=== PATIENT | female | born 1960 | race Caucasian/White ===

== ENCOUNTER 2018-04-19 10:18 | Outpatient (CLI) | payer BC | END 2018-04-19 10:19 | disposition home or self-care (01) | LOC: BICMAMMO 10:18 | PROVIDERS: ATTEND Family Medicine | DX: Z12.31 Encounter for screening mammogram for malignant neoplasm of breast (principal) | CPT/HCPCS: 77063; 77067 ==

== ENCOUNTER 2020-01-12 13:02 | Outpatient (CLI) | payer BC ==
--- NOTE | 2020-01-12 14:25 | MMO ---
Bilateral MAMMO Bilat Screen [facility]. CLINICAL HISTORY: Patient is 60 years old and is seen for screening. The patient has no family history of breast cancer. The patient has no personal history of cancer. The patient has a history of bilateral Explantation in May,, bilateral Implants in May, and bilateral Implants in 1999 - benign. VIEWS: The views performed were: bilateral craniocaudal; bilateral craniocaudal with tomosynthesis; bilateral mediolateral oblique; bilateral mediolateral oblique with tomosynthesis; and bilateral Implant displaced with tomosynthesis. FILMS COMPARED: The present examination has been compared to prior imaging studies performed at [facility] on 10/23/2016 and 04/19/2018, and at [facility] on 09/05/2008. This study has been interpreted with the assistance of computer-aided detection. MAMMOGRAM FINDINGS: The breasts are heterogeneously dense, which could obscure a lesion on mammography. Finding 1: There are stable benign appearing calcifications seen in both breasts. Finding 2: Normal implants are present. There are no suspicious masses, suspicious calcifications, or new areas of architectural distortion. IMPRESSION: THERE IS NO MAMMOGRAPHIC EVIDENCE OF MALIGNANCY. A ROUTINE FOLLOW-UP MAMMOGRAM IN 1 YEAR IS RECOMMENDED. THE RESULTS OF THIS EXAM WERE SENT TO THE PATIENT. ACR BI-RADS Category 2 - Benign finding MAMMOGRAPHY NOTE: 1. A negative mammogram report should not delay a biopsy if a dominant of clinically suspicious mass is present. 2. Approximately 10% to 15% of breast cancers are not detected by mammography. 3. Adenosis and dense breasts may obscure an underlying neoplasm. Reported by: YARI CASTRO MD Electonically Signed: [id number]
== END 2020-01-12 13:03 | disposition home or self-care (01) ==
LOC: BICMAMMO 13:02
PROVIDERS: ATTEND Family Medicine
DX: Z12.31 Encounter for screening mammogram for malignant neoplasm of breast (principal); Z98.82 Breast implant status
CPT/HCPCS: 77063; 77067

== ENCOUNTER 2020-02-07 12:50 | Outpatient (CLI) | payer BC ==
--- NOTE | 2020-02-07 14:38 | MRI ---
MRI LUMBAR SPINE WITHOUT CONTRAST: 02/07/20 INDICATIONS: Radiculopathy and low back pain. FINDINGS: Lumbar vertebrae maintain height and alignment. There are degenerative changes noted with spurring fr om the lumbar vertebra and degenerative disc changes throughout. Loss of disc space at L3-4, L4-5, an d to a lesser degree of L5-S1. Significant degenerative end plate changes at L3-4 and L4-5 with Modic type I changes. T12-L1: Mild disc bulge flattens the thecal sac without evidence of central canal or foraminal stenos is. L1-2: Minimal disc bulge. No central canal or foraminal stenosis. L2-3: There is an annular fissure with small central disc protrusion flattening the anterior thecal s ac. Moderate facet and ligamentous hypertrophy with posterior epidural fat. These changes result in m ild central canal stenosis. No significant foraminal stenosis. L3-4: Broad based disc bulge. Facet hypertrophy with posterior epidural fat compresses the thecal sac resulting moderate central canal stenosis. There is rather prominent epidural lipomatosis present at this level. L4-5: Broad based disc bulge with facet hypertrophy. Epidural lipomatosis compressing the thecal sac resulting in moderate central canal stenosis. Right foraminal stenosis at this level due to disc and facet hypertrophy. L5-S1: Central disc protrusion abuts the anterior thecal sac. The small protrusion measures approxima tely 6 to 7 mm AP dimension. It appears to contact the traversing left S1 nerve root. There is mild e pidural lipomatosis at this level with mild central canal stenosis. Mild right foraminal stenosis. IMPRESSION: Disc bulge/protrusions at L2-3, L3-4, L4-5 and L5-S1 as described above. Epidural lipomatosis is prom inent at L3-4, L4-5, and L5-S1 as noted above. POS: AH
== END 2020-02-07 12:51 | disposition home or self-care (01) ==
LOC: SCSMRI 12:50
PROVIDERS: ATTEND Family Medicine
DX: M47.27 Other spondylosis with radiculopathy, lumbosacral region (principal); M51.17 Intervertebral disc disorders with radiculopathy, lumbosacral region; M51.26 Other intervertebral disc displacement, lumbar region; E88.2 Lipomatosis, not elsewhere classified
CPT/HCPCS: 72148

== ENCOUNTER 2020-04-30 06:38 | Outpatient (CLI) | payer BC ==
[2020-04-30 13:33] LABS: Hemoglobin 14.8 g/dL (12.0-16.0); Mean Corpuscular Hemoglobin 32.4 PG (27.0-33.0); Mean Corpuscular Volume 95.2 fl (80.0-100.0); Platelet Count 237 10x3/uL (130-400); RBC Distribution Width 11.4 % (11.5-14.5); Red Blood Cell (RBC) Count 4.57 10x6/uL (3.90-5.20); White Blood Cell (WBC) Count 6.6 10x3/uL (4.5-11.0)
[2020-04-30 14:00] LABS: Anion Gap 17 mmol/L (10-20); BUN (Urea Nitrogen) 18 mg/dL (9.8-20.1); Calc. Creatinine Clearance 0 mL/min (70-130); Calcium 9.8 mg/dL (7.8-10.44); Carbon Dioxide 29 mmol/L (22-29); Chloride 100 mmol/L (98-107); Glucose 125 mg/dL (70-105); Potassium 4.2 mmol/L (3.5-5.1); Sodium 142 mmol/L (136-145)
[2020-04-30 14:05] LABS: PTT 27.1 sec (22.0-33.0); Prothrombin Time 10.6 sec (9.5-12.1)
[2020-04-30 21:56] LABS: SARS-CoV-2 MS2 Positive; SARS-CoV-2 N Gene Negative; SARS-CoV-2 S Gene Negative; SARS-CoV-2 by NAA Not Detected (NotDetected); SARS-CoV-2 orf1ab Negative
== END 2020-04-30 06:39 | disposition home or self-care (01) ==
LOC: LABBT 06:38
PROVIDERS: ATTEND Surgery
DX: Z01.818 Encounter for other preprocedural examination (principal); Z20.828 Contact with and (suspected) exposure to other viral communicable diseases; M51.26 Other intervertebral disc displacement, lumbar region; M48.062 Spinal stenosis, lumbar region with neurogenic claudication
CPT/HCPCS: 80048; 85027; 85610; 85730; 87635; 93005; 93010; U0003

== ENCOUNTER 2020-05-03 05:53 | Day surgery (SDC) | payer BC ==
[2020-05-02 10:29] VITALS: BMI 25.6
[2020-05-03] MEDS ORDERED: Fentanyl 100 MCG/2 ML VIAL ONE ×5 (06:21→11:36)
[2020-05-03] MEDS ORDERED: Thrombin 5000 UNITS/5 ML VIAL ONE (06:45)
[2020-05-03] MEDS ORDERED: Midazolam HCl 2 mg/2 ml Vial ONE (07:28)
[2020-05-03] MEDS ORDERED: Ondansetron PF 4 MG/2 ML Vial IVP PRN (09:56)
[2020-05-03] MEDS ORDERED: Acetaminophen 325 MG TAB PO PRN (09:56)
[2020-05-03] MEDS ORDERED: Mag-Al 1200 mg/1200 mg/30 ML UDCUP PO PRN (09:56)
[2020-05-03] MEDS ORDERED: Acetaminophen/Codeine 30-300mg Tablet PO PRN (09:56)
[2020-05-03] MEDS ORDERED: traMADol HCl 50 MG TAB PO PRN (09:56)
[2020-05-03] MEDS ORDERED: tiZANidine HCl 4 MG TAB PO PRN (09:56)
[2020-05-03] MEDS ORDERED: Bisacodyl 10 MG SUPP PR PRN (09:56)
[2020-05-03] MEDS ORDERED: Milk Of Magnesia 30 ML UDCUP PO PRN (09:56)
[2020-05-03] MEDS ORDERED: Labetalol HCl 100 MG/20 ML VIAL ONE (10:04)
[2020-05-03] MEDS ORDERED: Dexamethasone 20 MG/5 ML VIAL ONE (10:30)
[2020-05-03] MEDS ORDERED: Glycopyrrolate 0.2 MG/ML 5 ML SYRINGE ONE (10:30)
[2020-05-03] MEDS ORDERED: Ondansetron PF 4 MG/2 ML Vial ONE (10:30)
[2020-05-03] MEDS ORDERED: Rocuronium Bromide 10 MG/ML (10ML VIAL) ONE (10:30)
[2020-05-03] MEDS ORDERED: ePHEDrine 50 MG/ML VIAL ONE (10:30)
[2020-05-03] MEDS ORDERED: PROPOFOL 200 MG/20 ML VIAL ONE (10:30)
--- NOTE | 2020-05-03 11:42 | OP ---
DATE OF PROCEDURE: 05/03/2020 SECTION [employer]: Ana Rosa Hopson PA-C PREPROCEDURE DIAGNOSES: L2-L5 stenosis with paracentral and lateral disk extrusion, right L4-L5, low back and right leg pain. POSTPROCEDURE DIAGNOSES: L2-L5 stenosis with paracentral and lateral disk extrusion, right L4-L5, low back and right leg pain. PROCEDURES PERFORMED: 1. L2-L3, L3-L4, L4-L5 laminectomies, partial facetectomies, foraminotomies. 2. Use of operative microscope for microdissection with right L4-L5 paracentral diskectomy. 3. Right L4-L5 transfacet diskectomy for decompression of the lateral component of the L4 nerve root on the right side. DESCRIPTION OF PROCEDURE: After informed consent was obtained from the patient, the patient was brought to the OR. She was placed under excellent general endotracheal anesthesia and positioned prone on the OR table. All appropriate points were padded. We identified the L2 through L5 dorsal spines and linear jessica was made over this region. This area was sterilely cleansed, prepared, and draped. Proper patient, pause, and identification were carried out. The wound was then opened with a combination of sharp, monopolar, and blunt dissection. L2, L3, L4, L5 segments were all exposed. Localization film confirmed area of interest. We then performed L2-L3, L3-L4, L4-L5 laminectomies, partial facetectomies, foraminotomies. We then brought the microscope in, working over the shoulder of the traversing right L5 nerve root. Disk material was removed at the right L4-L5 segment with excellent decompression of traversing right L5 nerve root. We then turned our attention to the right L4-L5 transfacet approach to allow for skeletonization of the right L4 exiting nerve root and disk material was removed and the neural foramen to assure freedom. Copious irrigation occurred throughout as did maximizing hemostasis. The wound was then closed in anatomic layers following sprinkling of vancomycin powder. The patient emerged from anesthesia. Job ID: [id number]
--- NOTE | 2020-05-03 12:27 | RAD ---
LUMBAR SPINE: Date: 05/03/2020 HISTORY: Localization for surgery, laminectomy. FINDINGS: LUMBAR SPINE 1 VIEW: Single prone cross-table lateral view of the lumbar spine at 0759 hours on 05/03/[address] demonstrates di sc osteophytosis changes. Two metal probes are noted, one overlying the L3-L4 interspinous space, the other one is noted overlying the L1-L2 interspinous space. IMPRESSION: Spondylosis. Metal probes as above. LUMBAR SPINE 1 VIEW: Single prone cross-table lateral view of the lumbar spine at 0823 hours on 05/03/2020 demonstrates th at the metal probe is at the L4 spinous process level. Lumbar spondylosis. IMPRESSION: Metal probe at the L4 spinous process level. POS: RRE
[2020-05-03] MEDS: Morphine 2 MG/ML VIAL SLOW IVP PRN ×2 (12:33→18:26)
[2020-05-03] MEDS: HYDROcodone/Acetaminophen 7.5/325 mg Tablet PO PRN ×2 (15:13→21:00)
[2020-05-03] MEDS: Diazepam 5 MG TAB PO PRN (15:14)
[2020-05-03] MEDS: CEFAZOLIN 2 GM in Premix Bag 1 BAG IVPB SCH (17:10)
[2020-05-03] MEDS: Sodium Chloride 0.9% 1,000 ML IV SCH ×2 (18:27→22:25)
[2020-05-03] MEDS ORDERED: Atorvastatin Calcium 20 MG TAB PO SCH (21:00)
[2020-05-03] MEDS ORDERED: clonazePAM 1 MG TAB PO SCH (21:00)
[2020-05-03] MEDS ORDERED: Gabapentin 300 MG CAP PO SCH (21:00)
[2020-05-04] MEDS: CEFAZOLIN 2 GM in Premix Bag 1 BAG IVPB SCH (00:53)
[2020-05-04] MEDS: Diazepam 5 MG TAB PO PRN ×2 (00:55→09:36)
[2020-05-04] MEDS: HYDROcodone/Acetaminophen 7.5/325 mg Tablet PO PRN ×4 (00:55→13:36)
[2020-05-04] MEDS ORDERED: Lisinopril 5 MG TAB PO SCH (09:00)
[2020-05-04] MEDS: Sodium Chloride 0.9% 1,000 ML IV SCH (11:49)
--- NOTE | 2020-05-04 13:08 | PRG ---
DATE OF SERVICE: Ms. Guerrier is postoperative day #1 following lumbar laminectomy. She states her leg pain is the same as before surgery, although we were able to obtain excellent freedom of her nerve roots. As such, I think it is just a matter of time before she improves. I am very pleased with how she has done. Postoperatively, we will discharge her, and we went over do's and don'ts in the postoperative period. Job ID: [id number]
[2020-05-04 14:34] VITALS: BP 116/66; TEMP 100.6
== END 2020-05-04 14:37 | disposition home or self-care (01) ==
LOC: SDC 05:53 → SJJU 12:24 → SDC 05-04 14:37
PROVIDERS: ATTEND Surgery
DX: M48.062 Spinal stenosis, lumbar region with neurogenic claudication (principal); M51.16 Intervertebral disc disorders with radiculopathy, lumbar region; M47.26 Other spondylosis with radiculopathy, lumbar region; I10 Essential (primary) hypertension; E78.5 Hyperlipidemia, unspecified; F41.9 Anxiety disorder, unspecified; I73.9 Peripheral vascular disease, unspecified; Z79.899 Other long term (current) drug therapy; Z87.891 Personal history of nicotine dependence
CPT/HCPCS: 72020; J0690; J1100; J2250; J2270; J2405; J2704; J3010; J3370; J3490

== ENCOUNTER 2021-04-08 13:35 | Outpatient (CLI) | payer BC | END 2021-04-08 13:36 | disposition home or self-care (01) | LOC: BICMAMMO 13:35 | PROVIDERS: ATTEND Family Medicine | DX: Z12.31 Encounter for screening mammogram for malignant neoplasm of breast (principal); Z98.82 Breast implant status | CPT/HCPCS: 77063; 77067 ==

== ENCOUNTER 2022-12-04 12:14 | Outpatient (CLI) | payer BC | END 2022-12-04 12:15 | disposition home or self-care (01) | LOC: BICMAMMO 12:14 | PROVIDERS: ATTEND Family Medicine | DX: Z12.31 Encounter for screening mammogram for malignant neoplasm of breast (principal); Z98.82 Breast implant status | CPT/HCPCS: 77063; 77067 ==

== ENCOUNTER 2025-04-27 07:56 | Outpatient (CLI) | payer BC | END 2025-04-27 07:57 | disposition home or self-care (01) | LOC: SCSMRI 07:56 | PROVIDERS: ATTEND Orthopaedic Surgery | DX: M75.101 Unspecified rotator cuff tear or rupture of right shoulder, not specified as traumatic (principal); M19.011 Primary osteoarthritis, right shoulder; M65.911 Unspecified synovitis and tenosynovitis, right shoulder; S43.431A Superior glenoid labrum lesion of right shoulder, initial encounter; M75.111 Incomplete rotator cuff tear or rupture of right shoulder, not specified as traumatic; M25.711 Osteophyte, right shoulder ==

== ENCOUNTER 2025-05-15 05:26 | Observation (INO) | payer BC ==
[2025-05-15] MEDS ORDERED: fentaNYL PF 100 MCG/2 ML SYRINGE ONE (06:23)
[2025-05-15] MEDS ORDERED: PROPOFOL 20 ML ONE ×2 (06:23→07:43)
[2025-05-15] MEDS ORDERED: Tranexamic Acid 1,000 MG/10 ML VIAL ONE (06:33)
[2025-05-15] MEDS ORDERED: Vancomycin 1 GM/200 ML (FROZEN) BAG ONE (06:33)
[2025-05-15] MEDS ORDERED: Famotidine/PF 20 mg/2ml Vial ONE (06:33)
[2025-05-15] MEDS ORDERED: Ropivacaine 0.5% HCl/PF (150 MG/30 ML VIAL) ONE (06:43)
[2025-05-15] MEDS ORDERED: Lidocaine 1% (PF) 30 ML VIAL ONE (06:43)
[2025-05-15] MEDS ORDERED: CEFAZOLIN 2 GM VIAL ONE (07:01)
[2025-05-15] MEDS ORDERED: Ondansetron PF 4 MG/2 ML Vial IVP PRN ×2 (07:30→11:09)
[2025-05-15] MEDS ORDERED: Ropivacaine 0.2% 550 ML 550 ML NERVE BLCK SCH (07:30)
[2025-05-15] MEDS ORDERED: Acetaminophen 325 MG TAB PO PRN (11:09)
[2025-05-15] MEDS ORDERED: Bisacodyl 10 MG SUPP PR PRN (11:09)
[2025-05-15] MEDS ORDERED: Ketorolac Tromethamine 30 MG (1 mL) VIAL IVP SCH (12:00)
[2025-05-15] MEDS: Lisinopril 10 MG TAB PO SCH (14:18)
[2025-05-15] MEDS: Ketorolac Tromethamine 30 MG (1 mL) VIAL IVP SCH (14:19)
[2025-05-15 14:43] VITALS: BMI 24.1
[2025-05-15] MEDS: HYDROcodone/Acetaminophen 10/325 mg Tablet PO PRN ×2 (15:20→20:20)
[2025-05-15] MEDS: Famotidine 20 MG TAB PO SCH (20:19)
[2025-05-15] MEDS: Gabapentin 300 MG CAP PO PRN (23:19)
[2025-05-16] MEDS: Lisinopril 10 MG TAB PO SCH (08:55)
[2025-05-16 10:58] VITALS: BP 154/74; TEMP 97.7
== END 2025-05-16 12:20 | disposition home or self-care (01) ==
LOC: SDC 05:26 → SURG A 13:58
PROVIDERS: ADMIT Orthopaedic Surgery; ATTEND Orthopaedic Surgery
PROC: 0RRJ0JZ Replacement of Right Shoulder Joint with Synthetic Substitute, Open Approach (ICD-10-PCS; principal; 2025-05-15)
PROC: 0LS30ZZ Reposition Right Upper Arm Tendon, Open Approach (ICD-10-PCS; 2025-05-15)
PROC: 3E0T3BZ Introduction of Anesthetic Agent into Peripheral Nerves and Plexi, Percutaneous Approach (ICD-10-PCS; 2025-05-15)
DX: M19.011 Primary osteoarthritis, right shoulder (principal); M75.21 Bicipital tendinitis, right shoulder; I10 Essential (primary) hypertension; I65.23 Occlusion and stenosis of bilateral carotid arteries; E78.5 Hyperlipidemia, unspecified; F41.1 Generalized anxiety disorder; Z98.51 Tubal ligation status; Z79.899 Other long term (current) drug therapy
CPT/HCPCS: 96365; 96375; 96376; A4306; C1713; C1776; G0378; J0169; J1100; J1308; J1885; J2003; J2250; J2704; J2795; J3010; J3373; J7120